=== PATIENT | female | born 1965 | race Asian ===

== ENCOUNTER 2016-10-13 17:16 | Emergency (ER) | payer MEDICAID, OTHER ==
[~2016-10-13] VITALS: Ht 175.3 cm; Wt 72.7 kg
[~2016-10-13 17:16] MED LIST: AMLO1TAB PO; ASPI-556 PO; LEVO100T13 PO; LOSA25TA21 PO; [UNRECOGNIZED DRUG - CODE] PO
[2016-10-13] MEDS ORDERED: LABE200T PO (17:29)
[2016-10-13] MEDS ORDERED: ATEN100T PO (17:29)
[2016-10-13] MEDS ORDERED: METF500T4 PO (17:29)
[2016-10-13] MEDS ORDERED: DOXA2TAB PO (17:29)
[2016-10-13] MEDS ORDERED: LABETALOL HCL 200 MG TABLET PO ONE (23:15)
[2016-10-13] MEDS ORDERED: MetFORMIN HCL 500 MG TABLET PO ONE (23:15)
[2016-10-14 00:53] VITALS: BP 170/88
== END 2016-10-14 01:00 | disposition home or self-care (01) ==
LOC: EMS 17:19
DX: I10 Essential (primary) hypertension (principal); R79.89 Other specified abnormal findings of blood chemistry; G43.909 Migraine, unspecified, not intractable, without status migrainosus; E03.9 Hypothyroidism, unspecified; Z79.82 Long term (current) use of aspirin
CPT/HCPCS: 82962; 93005; 99283

== ENCOUNTER 2017-10-27 13:09 | Inpatient (IN) | payer OTHER ==
[~2017-10-27] VITALS: Ht 160 cm; Wt 69.6 kg
[~2017-10-27 13:09] MED LIST changes: +ATEN100T PO; +DOXA2TAB PO; +LABE200T6 PO; +METF500T6 PO; -[UNRECOGNIZED DRUG - CODE] PO
[2017-10-27] MEDS ORDERED: HYDR25TA PO (13:13)
[2017-10-27] MEDS ORDERED: AMLO-511 PO (13:13)
[2017-10-27 13:23] LABS: GLUCOSE,POINT OF CARE 157 MG/DL (70-110)
[2017-10-27 14:43] LABS: BASOPHILS % (AUTO) 0.5 % (0.0-2.0); EOSINOPHILS % (AUTO) 0.5 % (1.0-6.0); HEMATOCRIT 40.7 % (36-46); LYMPHOCYTES # (AUTO) 1.2 K/uL (1.0-4.8); LYMPHOCYTES % (AUTO) 14.2 % (22.0-44.0); MEAN CORPUSCULAR HEMOGLOBIN 29.7 pg (26.0-34.0); MEAN CORPUSCULAR HGB CONC 34.4 G/dL (31.0-37.0); MEAN CORPUSCULAR VOLUME 86 fL (80-100); MONOCYTES # (AUTO) 0.3 K/uL (0.1-1.0); MONOCYTES % (AUTO) 4.1 % (2.0-9.0); NEUTROPHILS # (AUTO) 6.9 K/uL (1.8-7.7); NEUTROPHILS % (AUTO) 80.7 % (40.0-70.0); PLATELET COUNT (AUTO) 262 K/uL (150-450); RED BLOOD CELL COUNT(AUTO) 4.72 MIL/uL (4.00-5.20); RED CELL DISTRIBUTION WIDTH 13.9 % (11.5-14.5)
[2017-10-27] MEDS: NICARDipine 20 MG/DEXT,ISO-OSM 200 ML IV PRN ×4 (14:47→23:59)
[2017-10-27 14:52] LABS: ANION GAP 11 mmol/L (8-16); CALCIUM, TOTAL 8.9 mg/dL (8.8-10.5); CARBON DIOXIDE 28 mmol/L (22-29); CHLORIDE 101 mmol/L (98-107); CREATININE 0.75 mg/dL (0.60-1.30); GLOMERULAR FILTR. RATE CALC > 60 mL/min (>60); GLUCOSE,RANDOM 168 mg/dL (70-110); POTASSIUM 3.3 mmol/L (3.5-5.1); SODIUM SERUM 140 mmol/L (136-145); UREA NITROGEN, BLOOD 13 mg/dL (7-18)
[2017-10-27 14:54] LABS: PROTHROMBIN TIME 10.7 SEC (9.4-11.6)
[2017-10-27 14:58] LABS: ALANINE AMINOTRANSFERASE 97 U/L (12-78); ALBUMIN 4.2 g/dL (3.4-5.0); ALKALINE PHOSPHATASE 81 U/L (46-116); ASPARTATE AMINOTRANSFERASE 49 U/L (15-37); CREATINE KINASE, TOTAL 65 U/L (26-192)
[2017-10-27 15:08] LABS: TROPONIN I < 0.02 ng/mL (0.00-0.05)
[2017-10-27 15:13] LABS: AMMONIA 17 umol/L (11-32)
[2017-10-27 16:03] LABS: APPEARANCE,URINE CLEAR (CLEAR); BILIRUBIN,URINE NEGATIVE (NEGATIVE); GLUCOSE, URINE (UA) NEGATIVE (NEGATIVE); KETONES,URINE NEGATIVE (NEGATIVE); LEUKOCYTE ESTERASE ,URINE NEGATIVE (NEGATIVE); NITRATE,URINE NEGATIVE (NEGATIVE); OCCULT BLOOD,URINE NEGATIVE (NEGATIVE); PROTEIN,URINE TRACE (NEGATIVE); UROBILINOGEN,URINE 0.2 mg/dL (<=1.0)
[2017-10-27 16:06] LABS: AMPHET/METH SCREEN,URINE NEGATIVE (NEGATIVE); BARBITURATE SCREEN, URINE NEGATIVE (NEGATIVE); BENZODIAZEPINES SCREEN,URINE NEGATIVE (NEGATIVE); CANNABINOID SCREEN,URINE NEGATIVE (NEGATIVE); COCAINE SCREEN,URINE NEGATIVE (NEGATIVE); METHADONE SCREEN, URINE NEGATIVE (NEGATIVE); OPIATE SCREEN,URINE NEGATIVE (NEGATIVE)
[2017-10-27] MEDS ORDERED: ONDANSETRON HCL 4 MG/2 ML VIAL IVP PRN (16:15)
[2017-10-27 16:17] LABS: PHENCYCLIDINE SCREEN,URINE NEGATIVE (NEGATIVE)
[2017-10-27 17:10] VITALS: BP 153/84
[2017-10-27] MEDS ORDERED: HYDROmorphone 2 MG/ML SYRINGE IVP PRN (19:00)
[2017-10-27 20:00] VITALS: BP 157/77
[2017-10-28] VITALS: BP 153/77
[2017-10-28] MEDS: NICARDipine 20 MG/DEXT,ISO-OSM 200 ML IV PRN ×3 (03:45→10:45)
[2017-10-28 04:00] VITALS: BP 151/75
[2017-10-28 04:55] LABS: PROTHROMBIN TIME 10.8 SEC (9.4-11.6)
[2017-10-28 05:55] LABS: BASOPHILS % (AUTO) 0.4 % (0.0-2.0); EOSINOPHILS % (AUTO) 1.5 % (1.0-6.0); HEMATOCRIT 39.9 % (36-46); HEMOGLOBIN 13.8 g/dL (12.0-16.0); LYMPHOCYTES # (AUTO) 1.5 K/uL (1.0-4.8); LYMPHOCYTES % (AUTO) 16.8 % (22.0-44.0); MEAN CORPUSCULAR HEMOGLOBIN 30.1 pg (26.0-34.0); MEAN CORPUSCULAR HGB CONC 34.6 G/dL (31.0-37.0); MEAN CORPUSCULAR VOLUME 87 fL (80-100); MONOCYTES # (AUTO) 0.6 K/uL (0.1-1.0); MONOCYTES % (AUTO) 6.3 % (2.0-9.0); NEUTROPHILS # (AUTO) 6.7 K/uL (1.8-7.7); PLATELET COUNT (AUTO) 247 K/uL (150-450); RED BLOOD CELL COUNT(AUTO) 4.59 MIL/uL (4.00-5.20); RED CELL DISTRIBUTION WIDTH 13.7 % (11.5-14.5)
[2017-10-28 06:00] LABS: ANION GAP 9 mmol/L (8-16); CALCIUM, TOTAL 8.8 mg/dL (8.8-10.5); CARBON DIOXIDE 27 mmol/L (22-29); CHLORIDE 99 mmol/L (98-107); CREATININE 0.69 mg/dL (0.60-1.30); GLOMERULAR FILTR. RATE CALC > 60 mL/min (>60); GLUCOSE,RANDOM 198 mg/dL (70-110); SODIUM SERUM 135 mmol/L (136-145); UREA NITROGEN, BLOOD 14 mg/dL (7-18)
[2017-10-28] MEDS: LEVOTHYROXINE SODIUM 100 MCG TABLET PO SCH (06:18)
[2017-10-28] MEDS ORDERED: POTASSIUM CHLORIDE 10 MEQ ER TABLET PO ONE (07:00)
[2017-10-28] MEDS ORDERED: POTASSIUM CHL 10 MEQ/WATER 50 ML IV PRN (07:00)
[2017-10-28] MEDS ORDERED: POTASSIUM CHL 10 MEQ/WATER 50 ML IV ONE (07:00)
[2017-10-28] MEDS ORDERED: SODIUM CHLORIDE 0.9% 100 ML ONE (07:17)
[2017-10-28] MEDS ORDERED: DEXTROSE 50%-WATER 25 GM/50 ML SYRINGE IVP PRN (07:30)
[2017-10-28] MEDS: PANTOPRAZOLE SODIUM 40 MG/VIAL IVP SCH (07:57)
[2017-10-28] MEDS: AmLODIPine BESYLATE 5 MG TABLET PO SCH (07:57)
[2017-10-28] MEDS: ATENOLOL 100 MG TABLET PO SCH (07:57)
[2017-10-28] MEDS: POTASSIUM CHLORIDE 20 MEQ ER TABLET PO PRN (07:57)
[2017-10-28 08:00] VITALS: BP 153/85
[2017-10-28] MEDS ORDERED: PANTOPRAZOLE SODIUM 40 MG/VIAL IVP SCH (09:00)
[2017-10-28] MEDS: ENALAPRILAT DIHYDRATE 1.25 MG/ML 2 ML VIAL IVP PRN ×2 (09:07→11:50)
[2017-10-28] MEDS: INSULIN LISPRO 100 UNITS/ML SQ PRN ×2 (11:29→17:27)
[2017-10-28 12:00] VITALS: BP 161/78
[2017-10-28] MEDS: HydrALAZINE HCL 10 MG TABLET PO SCH ×4 (13:00→20:47)
[2017-10-28 16:00] VITALS: BP 115/78
[2017-10-28] MEDS ORDERED: BISACODYL 10 MG RECTAL RECTAL SUPPOSITORY PR PRN (16:15)
[2017-10-28 20:00] VITALS: BP 158/77
[2017-10-28] MEDS: DOCUSATE SODIUM 100 MG CAPSULE PO SCH (20:48)
[2017-10-29] VITALS: BP 129/74
[2017-10-29 04:00] VITALS: BP 145/82
[2017-10-29 06:23] LABS: BASOPHILS % (AUTO) 0.5 % (0.0-2.0); EOSINOPHILS % (AUTO) 0.8 % (1.0-6.0); HEMOGLOBIN 14.5 g/dL (12.0-16.0); LYMPHOCYTES # (AUTO) 1.7 K/uL (1.0-4.8); LYMPHOCYTES % (AUTO) 15.9 % (22.0-44.0); MEAN CORPUSCULAR HGB CONC 34.5 G/dL (31.0-37.0); MEAN CORPUSCULAR VOLUME 87 fL (80-100); MONOCYTES # (AUTO) 0.7 K/uL (0.1-1.0); MONOCYTES % (AUTO) 6.4 % (2.0-9.0); NEUTROPHILS # (AUTO) 8.2 K/uL (1.8-7.7); NEUTROPHILS % (AUTO) 76.4 % (40.0-70.0); PLATELET COUNT (AUTO) 270 K/uL (150-450); RED BLOOD CELL COUNT(AUTO) 4.82 MIL/uL (4.00-5.20); RED CELL DISTRIBUTION WIDTH 13.4 % (11.5-14.5)
[2017-10-29 06:32] LABS: ANION GAP 11 mmol/L (8-16); CALCIUM, TOTAL 8.8 mg/dL (8.8-10.5); CARBON DIOXIDE 23 mmol/L (22-29); CHLORIDE 99 mmol/L (98-107); CREATININE 0.71 mg/dL (0.60-1.30); GLOMERULAR FILTR. RATE CALC > 60 mL/min (>60); GLUCOSE,RANDOM 172 mg/dL (70-110); POTASSIUM 3.7 mmol/L (3.5-5.1); SODIUM SERUM 133 mmol/L (136-145); UREA NITROGEN, BLOOD 18 mg/dL (7-18)
[2017-10-29 06:43] LABS: GLUCOSE,POINT OF CARE 145 MG/DL (70-110)
[2017-10-29 06:43] LABS: GLUCOSE,POINT OF CARE 167 MG/DL (70-110)
[2017-10-29] MEDS: LEVOTHYROXINE SODIUM 100 MCG TABLET PO SCH (06:58)
[2017-10-29] MEDS: INSULIN LISPRO 100 UNITS/ML SQ PRN ×3 (07:05→21:19)
[2017-10-29 07:09] LABS: GLUCOSE,POINT OF CARE 155 MG/DL (70-110)
[2017-10-29 08:00] VITALS: BP 149/82
[2017-10-29] MEDS: AmLODIPine BESYLATE 5 MG TABLET PO SCH (08:07)
[2017-10-29] MEDS: ATENOLOL 100 MG TABLET PO SCH (08:07)
[2017-10-29] MEDS: DOCUSATE SODIUM 100 MG CAPSULE PO SCH ×2 (08:07→21:16)
[2017-10-29] MEDS: PANTOPRAZOLE SODIUM 40 MG/VIAL IVP SCH (08:08)
[2017-10-29] MEDS: POTASSIUM CHLORIDE 10% 40 MEQ/30 ML LIQUID UDCUP PO PRN (08:08)
[2017-10-29] MEDS: HydrALAZINE HCL 10 MG TABLET PO SCH ×4 (08:08→21:16)
[2017-10-29] MEDS ORDERED: GADOBUTROL 1 MMOL/ML 10 ML VIAL IVP ONE (08:44)
[2017-10-29] MEDS: ONDANSETRON HCL 4 MG/2 ML VIAL IVP PRN (11:42)
[2017-10-29 12:00] VITALS: BP 137/62
[2017-10-29 15:09] LABS: GLUCOSE,POINT OF CARE 159 MG/DL (70-110)
[2017-10-29 16:00] VITALS: BP 136/70
[2017-10-29 18:37] LABS: GLUCOSE,POINT OF CARE 138 MG/DL (70-110)
[2017-10-29 20:00] VITALS: BP 109/68
[2017-10-29] MEDS ORDERED: SODIUM CHLORIDE 0.9% 250 ML IV ONE (21:06)
[2017-10-30] VITALS (7 sets, daily range): BP systolic 102–157; BP diastolic 56–73
[2017-10-30 05:12] LABS: ANION GAP 9 mmol/L (8-16); CALCIUM, TOTAL 8.7 mg/dL (8.8-10.5); CARBON DIOXIDE 25 mmol/L (22-29); CHLORIDE 101 mmol/L (98-107); CREATININE 0.73 mg/dL (0.60-1.30); GLOMERULAR FILTR. RATE CALC > 60 mL/min (>60); GLUCOSE,RANDOM 136 mg/dL (70-110); POTASSIUM 3.6 mmol/L (3.5-5.1); SODIUM SERUM 135 mmol/L (136-145); UREA NITROGEN, BLOOD 18 mg/dL (7-18)
[2017-10-30 05:27] LABS: BASOPHILS % (AUTO) 0.7 % (0.0-2.0); EOSINOPHILS % (AUTO) 1.6 % (1.0-6.0); HEMOGLOBIN 14.5 g/dL (12.0-16.0); LYMPHOCYTES # (AUTO) 2.1 K/uL (1.0-4.8); MEAN CORPUSCULAR HEMOGLOBIN 29.9 pg (26.0-34.0); MEAN CORPUSCULAR HGB CONC 34.4 G/dL (31.0-37.0); MEAN CORPUSCULAR VOLUME 87 fL (80-100); MONOCYTES # (AUTO) 0.7 K/uL (0.1-1.0); MONOCYTES % (AUTO) 8.2 % (2.0-9.0); NEUTROPHILS # (AUTO) 5.8 K/uL (1.8-7.7); NEUTROPHILS % (AUTO) 65.5 % (40.0-70.0); PLATELET COUNT (AUTO) 265 K/uL (150-450); RED BLOOD CELL COUNT(AUTO) 4.83 MIL/uL (4.00-5.20); RED CELL DISTRIBUTION WIDTH 13.5 % (11.5-14.5)
[2017-10-30] MEDS: LEVOTHYROXINE SODIUM 100 MCG TABLET PO SCH (05:34)
[2017-10-30 05:53] LABS: GLUCOSE,POINT OF CARE 148 MG/DL (70-110)
[2017-10-30 05:54] LABS: GLUCOSE,POINT OF CARE 133 MG/DL (70-110)
[2017-10-30] MEDS: DOCUSATE SODIUM 100 MG CAPSULE PO SCH ×2 (08:42→20:41)
[2017-10-30] MEDS: HydrALAZINE HCL 10 MG TABLET PO SCH ×4 (08:44→20:39)
[2017-10-30] MEDS: PANTOPRAZOLE SODIUM 40 MG/VIAL IVP SCH (08:44)
[2017-10-30] MEDS: ATENOLOL 100 MG TABLET PO SCH (08:44)
[2017-10-30] MEDS: AmLODIPine BESYLATE 5 MG TABLET PO SCH (08:44)
[2017-10-30] MEDS: POTASSIUM CHLORIDE 10% 40 MEQ/30 ML LIQUID UDCUP PO PRN (18:05)
[2017-10-30] MEDS: ONDANSETRON HCL 4 MG/2 ML VIAL IVP PRN (18:05)
[2017-10-31 04:14] VITALS: BP 112/56
[2017-10-31] MEDS: INSULIN LISPRO 100 UNITS/ML SQ PRN ×3 (06:01→17:04)
[2017-10-31] MEDS: LEVOTHYROXINE SODIUM 100 MCG TABLET PO SCH (06:02)
[2017-10-31 06:05] LABS: BASOPHILS % (AUTO) 0.7 % (0.0-2.0); EOSINOPHILS % (AUTO) 3.2 % (1.0-6.0); HEMATOCRIT 38.2 % (36-46); LYMPHOCYTES # (AUTO) 2.6 K/uL (1.0-4.8); LYMPHOCYTES % (AUTO) 28.1 % (22.0-44.0); MEAN CORPUSCULAR HEMOGLOBIN 29.6 pg (26.0-34.0); MEAN CORPUSCULAR HGB CONC 34.1 G/dL (31.0-37.0); MEAN CORPUSCULAR VOLUME 87 fL (80-100); MONOCYTES # (AUTO) 0.8 K/uL (0.1-1.0); MONOCYTES % (AUTO) 8.3 % (2.0-9.0); NEUTROPHILS # (AUTO) 5.6 K/uL (1.8-7.7); NEUTROPHILS % (AUTO) 59.7 % (40.0-70.0); PLATELET COUNT (AUTO) 244 K/uL (150-450); RED CELL DISTRIBUTION WIDTH 13.1 % (11.5-14.5)
[2017-10-31 06:18] LABS: ANION GAP 8 mmol/L (8-16); CALCIUM, TOTAL 8.7 mg/dL (8.8-10.5); CARBON DIOXIDE 27 mmol/L (22-29); CHLORIDE 101 mmol/L (98-107); CREATININE 0.84 mg/dL (0.60-1.30); GLOMERULAR FILTR. RATE CALC > 60 mL/min (>60); GLUCOSE,RANDOM 127 mg/dL (70-110); POTASSIUM 3.7 mmol/L (3.5-5.1); SODIUM SERUM 136 mmol/L (136-145); UREA NITROGEN, BLOOD 19 mg/dL (7-18)
[2017-10-31 07:54] VITALS: BP 131/67
[2017-10-31 08:19] LABS: GLUCOSE,POINT OF CARE 130 MG/DL (70-110)
[2017-10-31 08:19] LABS: GLUCOSE,POINT OF CARE 129 MG/DL (70-110)
[2017-10-31 08:19] LABS: GLUCOSE,POINT OF CARE 123 MG/DL (70-110)
[2017-10-31] MEDS: HydrALAZINE HCL 10 MG TABLET PO SCH ×4 (08:50→20:41)
[2017-10-31] MEDS: PANTOPRAZOLE SODIUM 40 MG/VIAL IVP SCH (08:51)
[2017-10-31] MEDS: AmLODIPine BESYLATE 5 MG TABLET PO SCH (08:52)
[2017-10-31] MEDS: DOCUSATE SODIUM 100 MG CAPSULE PO SCH ×2 (08:52→20:41)
[2017-10-31] MEDS: ATENOLOL 100 MG TABLET PO SCH (08:55)
[2017-10-31 11:29] VITALS: BP 120/74
[2017-10-31 14:24] LABS: GLUCOMETER DEV NAME(LOC) 5N 1P; GLUCOSE,POINT OF CARE 140 MG/DL (70-110)
[2017-10-31 16:02] VITALS: BP 145/93
[2017-10-31 19:38] VITALS: BP 142/79
[2017-10-31 20:59] LABS: GLUCOMETER DEV NAME(LOC) 5N 2S; GLUCOSE,POINT OF CARE 154 MG/DL (70-110)
[2017-10-31 20:59] LABS: GLUCOMETER DEV NAME(LOC) 5N 2S; GLUCOSE,POINT OF CARE 160 MG/DL (70-110)
[2017-10-31 20:59] LABS: GLUCOMETER DEV NAME(LOC) 5N 2S; GLUCOSE,POINT OF CARE 124 MG/DL (70-110)
[2017-10-31 23:31] VITALS: BP 139/76
[2017-11-01 04:32] VITALS: BP 144/77
[2017-11-01 05:14] LABS: GLUCOMETER DEV NAME(LOC) 5N 1P; GLUCOSE,POINT OF CARE 112 MG/DL (70-110)
[2017-11-01] MEDS: LEVOTHYROXINE SODIUM 100 MCG TABLET PO SCH (06:14)
[2017-11-01 06:18] LABS: EOSINOPHILS % (AUTO) 4.4 % (1.0-6.0); HEMATOCRIT 41.1 % (36-46); HEMOGLOBIN 14.1 g/dL (12.0-16.0); LYMPHOCYTES # (AUTO) 1.5 K/uL (1.0-4.8); LYMPHOCYTES % (AUTO) 22.3 % (22.0-44.0); MEAN CORPUSCULAR HGB CONC 34.4 G/dL (31.0-37.0); MEAN CORPUSCULAR VOLUME 87 fL (80-100); MONOCYTES # (AUTO) 0.6 K/uL (0.1-1.0); MONOCYTES % (AUTO) 9.3 % (2.0-9.0); NEUTROPHILS # (AUTO) 4.2 K/uL (1.8-7.7); PLATELET COUNT (AUTO) 233 K/uL (150-450); RED BLOOD CELL COUNT(AUTO) 4.72 MIL/uL (4.00-5.20); RED CELL DISTRIBUTION WIDTH 13.1 % (11.5-14.5)
[2017-11-01 06:31] LABS: ANION GAP 8 mmol/L (8-16); CALCIUM, TOTAL 8.7 mg/dL (8.8-10.5); CARBON DIOXIDE 28 mmol/L (22-29); CHLORIDE 102 mmol/L (98-107); GLOMERULAR FILTR. RATE CALC > 60 mL/min (>60); GLUCOSE,RANDOM 123 mg/dL (70-110); POTASSIUM 3.4 mmol/L (3.5-5.1); SODIUM SERUM 138 mmol/L (136-145); UREA NITROGEN, BLOOD 16 mg/dL (7-18)
[2017-11-01 07:39] VITALS: BP 157/73
[2017-11-01] MEDS: PANTOPRAZOLE SODIUM 40 MG/VIAL IVP SCH (08:51)
[2017-11-01] MEDS: AmLODIPine BESYLATE 5 MG TABLET PO SCH (08:52)
[2017-11-01] MEDS: DOCUSATE SODIUM 100 MG CAPSULE PO SCH ×2 (08:52→21:22)
[2017-11-01] MEDS: POTASSIUM CHLORIDE 20 MEQ ER TABLET PO PRN (08:52)
[2017-11-01] MEDS: HydrALAZINE HCL 10 MG TABLET PO SCH ×4 (08:52→21:22)
[2017-11-01] MEDS: ATENOLOL 100 MG TABLET PO SCH (09:00)
[2017-11-01 11:36] VITALS: BP 158/90
[2017-11-01] MEDS: INSULIN LISPRO 100 UNITS/ML SQ PRN ×2 (12:19→17:13)
[2017-11-01 12:29] LABS: GLUCOMETER DEV NAME(LOC) 5N 1P; GLUCOSE,POINT OF CARE 102 MG/DL (70-110)
[2017-11-01 15:48] VITALS: BP 157/80
[2017-11-01 20:32] VITALS: BP 157/78
[2017-11-02 00:13] VITALS: BP 150/80
[2017-11-02 05:40] VITALS: BP 162/89
[2017-11-02] MEDS: LEVOTHYROXINE SODIUM 100 MCG TABLET PO SCH (06:14)
[2017-11-02] MEDS: ENALAPRILAT DIHYDRATE 1.25 MG/ML 2 ML VIAL IVP PRN (06:15)
[2017-11-02 06:53] LABS: GLUCOMETER DEV NAME(LOC) 5N 1P; GLUCOSE,POINT OF CARE 112 MG/DL (70-110)
[2017-11-02 06:53] LABS: GLUCOMETER DEV NAME(LOC) 5N 1P; GLUCOSE,POINT OF CARE 127 MG/DL (70-110)
[2017-11-02 07:20] VITALS: BP 170/75
[2017-11-02] MEDS: DOCUSATE SODIUM 100 MG CAPSULE PO SCH (08:39)
[2017-11-02] MEDS: HydrALAZINE HCL 10 MG TABLET PO SCH ×3 (08:39→15:47)
[2017-11-02] MEDS: PANTOPRAZOLE SODIUM 40 MG/VIAL IVP SCH (08:39)
[2017-11-02] MEDS: ATENOLOL 100 MG TABLET PO SCH (08:39)
[2017-11-02] MEDS ORDERED: AmLODIPine BESYLATE 10 MG TABLET PO SCH (09:00)
[2017-11-02 11:29] LABS: GLUCOMETER DEV NAME(LOC) 5N 2S; GLUCOSE,POINT OF CARE 129 MG/DL (70-110)
[2017-11-02 11:45] VITALS: BP 134/76
[2017-11-02 15:46] VITALS: BP 142/70
[2017-11-04 23:28] LABS: GLUCOMETER DEV NAME(LOC) 5N 2S; GLUCOSE,POINT OF CARE 97 MG/DL (70-110)
== END 2017-11-02 17:50 | DRG 44 ==
LOC: EMS 13:09 → ICU 16:16 → 5N 10-30 23:23
PROVIDERS: ADMIT Internal Medicine; ATTEND Internal Medicine
DX: I61.1 Nontraumatic intracerebral hemorrhage in hemisphere, cortical (principal); G93.49 Other encephalopathy; E11.65 Type 2 diabetes mellitus with hyperglycemia; R47.01 Aphasia; I10 Essential (primary) hypertension; I16.1 Hypertensive emergency; E03.9 Hypothyroidism, unspecified; G43.909 Migraine, unspecified, not intractable, without status migrainosus; E87.6 Hypokalemia; R62.50 Unspecified lack of expected normal physiological development in childhood; H51.8 Other specified disorders of binocular movement; Z79.82 Long term (current) use of aspirin; Z79.899 Other long term (current) drug therapy; Z83.3 Family history of diabetes mellitus
CPT/HCPCS: 51702; 70450; 70544; 70553; 83036; 84132; 87081; 92507; 92610; 93005; 96365; 96366; 97116; 97163; 97166; 97530; 97535; 99291; A9585; C9113; J1170; J2405; J3480; J7050